=== PATIENT | female | born 1945 | race Caucasian/White ===

== ENCOUNTER → 2019-06-05 | Outpatient (CLI) | payer MEDICARE, BC ==
--- NOTE | 2019-06-05 11:27 | RADIOLOGY REPORT (SQ) ---
EXAM DESCRIPTION: CHEST PA/LATERAL COMPLETED DATE/TIME: 06/05/2019 11:15 am REASON FOR STUDY: PRE-OP COMPARISON: None. EXAM PARAMETERS: NUMBER OF VIEWS: two views TECHNIQUE: Digital Frontal and Lateral radiographic views of the chest acquired. RADIATION DOSE: NA LIMITATIONS: none FINDINGS: LUNGS AND PLEURA: No opacities, masses or pneumothorax. No pleural effusion. MEDIASTINUM AND HILAR STRUCTURES: No masses or contour abnormalities. HEART AND VASCULAR STRUCTURES: Heart normal size. No evidence for failure. BONES: No acute findings. HARDWARE: None in the chest. OTHER: No other significant finding. IMPRESSION: NO SIGNIFICANT RADIOGRAPHIC FINDING IN THE CHEST. TECHNICAL DOCUMENTATION: JOB ID: [id number] [employer]- All Rights Reserved Reading location - IP/workstation name: [email or web address]
[2019-06-05 12:14] LABS: APPEARANCE,URINE CLEAR; BILIRUBIN,URINE NEGATIVE (NEGATIVE); COLOR,URINE YELLOW; GLUCOSE, URINE NEGATIVE (NEGATIVE); KETONES,URINE NEGATIVE (NEGATIVE); LEUKOCYTE ESTERASE,URINE SMALL (NEGATIVE); NITRITE,URINE NEGATIVE (NEGATIVE); PROTEIN,URINE NEGATIVE (NEGATIVE); URINE SPECIFIC GRAVITY 1.013; UROBILINOGEN,URINE NEGATIVE mg/dL (<2.0)
[2019-06-05 12:15] LABS: ABSOLUTE EOSINOPHILS # (AUTO) 0.2 10^3/uL (0.0-0.6); ABSOLUTE LYMPHOCYTES (AUTO) 1.7 10^3/uL (0.5-4.7); ABSOLUTE MONOCYTES (AUTO) 0.5 10^3/uL (0.1-1.4); ABSOLUTE NEUT (AUTO) 4.8 10^3/uL (1.7-8.2); BASOPHILS % (AUTO) 0.1 % (0-2); HEMOGLOBIN 13.5 g/dL (12.0-15.5); LYMPHOCYTES % (AUTO) 23.6 % (13-45); MEAN CORPUSCULAR HEMOGLOBIN 30.4 pg (27.0-33.4); MEAN CORPUSCULAR HGB CONC 33.8 g/dL (32.0-36.0); MEAN CORPUSCULAR VOLUME 90 fl (80-97); MONOCYTES % (AUTO) 6.9 % (3-13); PLATELET COUNT 357 10^3/uL (150-450); RED BLOOD COUNT 4.44 10^6/uL (3.72-5.28); RED CELL DISTRIBUTION WIDTH 14.4 % (11.5-14.0); SEGMENTED NEUTROPHILS % (AUTO) 66.4 % (42-78); TOTAL CELLS COUNTED % (AUTO) 100 %; WHITE BLOOD COUNT 7.2 10^3/uL (4.0-10.5)
[2019-06-05 12:46] LABS: ALBUMIN 4.3 g/dL (3.5-5.0); ANION GAP 10 (5-19); BLOOD UREA NITROGEN 9 mg/dL (7-20); CALCIUM 9.9 mg/dL (8.4-10.2); CARBON DIOXIDE 30 mmol/L (22-30); CHLORIDE 101 mmol/L (98-107); GLUCOSE 89 mg/dL (75-110); POTASSIUM 5.4 mmol/L (3.6-5.0)
[2019-06-05 12:52] LABS: PREALBUMIN 29.8 mg/dL (17.6-36.0)
[2019-06-05 12:56] LABS: C-REACTIVE PROTEIN < 5.0 mg/L (<10.0)
[2019-06-05 13:15] LABS: ERYTHROCYTE SEDIMENTATION RATE 30 mm/hr (0-30)
--- NOTE | 2019-06-05 20:46 | EKG REPORT ---
SEVERITY:- NORMAL ECG - SINUS RHYTHM : Confirmed by: Soledad Burr 05-Jun-2019 20:45:20
== END ==
LOC: OD 10:50
PROVIDERS: ATTEND Orthopaedic Surgery
DX: Z01.818 Encounter for other preprocedural examination (principal); R94.31 Abnormal electrocardiogram [ECG] [EKG]; I10 Essential (primary) hypertension; E11.9 Type 2 diabetes mellitus without complications
CPT/HCPCS: 36415; 71046; 80048; 81001; 82040; 82306; 83036; 84134; 85025; 85652; 86140; 93005; 93010

== ENCOUNTER 2019-07-04 05:26 | Day surgery (SDC) | payer MEDICARE, BC ==
[~2019-07-04 05:26] MED LIST: ACETAMINOPHEN 325 MG TABLET ONE; ACETAMINOPHEN 325 MG TABLET PO PRN; CEFAZOLIN SODIUM 2 GM in DEXTROSE 5%-WATER 100 ML IV PRN; LACTATED RINGERS 1000 ML IV PRN; LIDOCAINE 0.5% INJ-PF (5 MG/ML) 50 ML SDV SUBCUT PRN; OXYCODONE HCL SR 10 MG TABLET PO ONE; OXYCODONE HCL SR 10 MG TABLET PO PRN
[2019-07-04] MEDS ORDERED: PROPOFOL INJ 200 MG/20 ML VIAL IV ONE ×2 (06:32→09:53)
[2019-07-04] MEDS ORDERED: TRANEXAMIC ACID INJ/PF 1,000 MG/10 ML SDV ONE (06:32)
[2019-07-04] MEDS ORDERED: ONDANSETRON HCL INJ/PF 4 MG/2 ML SDV ONE (06:32)
[2019-07-04] MEDS ORDERED: MIDAZOLAM 2 MG/2 ML INJ ONE (06:32)
[2019-07-04] MEDS ORDERED: EPINEPHRINE INJ/PF 1 MG/1 ML AMPULE ONE (06:32)
[2019-07-04] MEDS ORDERED: BUPIVACAINE HCL 0.5 % INJ/PF 30 ML SDV ONE (07:07)
[2019-07-04 07:27] LABS: POTASSIUM 4.7 mmol/L (3.6-5.0)
[2019-07-04] MEDS ORDERED: PROMETHAZINE HCL INJ 25 MG/1 ML VIAL IV PRN (07:58)
[2019-07-04] MEDS ORDERED: DIPHENHYDRAMINE HCL 50 MG/ML VIAL IV PRN (07:58)
[2019-07-04] MEDS ORDERED: MORPHINE SULFATE 10 MG/ML INJ IV PRN ×4 (07:58→14:05)
[2019-07-04] MEDS ORDERED: MEPERIDINE HCL/PF INJ 25 MG/1 ML DISP.SYRIN IV PRN (07:58)
[2019-07-04] MEDS ORDERED: FENTANYL CITRATE INJ/PF 100 MCG/2 ML AMPUL IV PRN ×3 (07:58)
[2019-07-04] MEDS: BUPIVACAINE HCL 0.25 % INJ/PF (2.5 MG/1 ML) 30 ML VIAL ONE ×2 (08:39→09:05)
[2019-07-04] MEDS: LIDOCAINE 1% INJ-PF (10 MG/ML) 30 ML SDV ONE ×2 (08:40→09:05)
[2019-07-04] MEDS: KETOROLAC TROMETHAMINE INJ/PF 30 MG/1 ML SDV ONE ×2 (08:40→09:05)
[2019-07-04] MEDS: VANCOMYCIN HCL INJ 1000 MG VIAL ONE ×2 (08:41→09:10)
[2019-07-04] MEDS ORDERED: HYDROMORPHONE HCL INJ/PF 2 MG/ML AMPULE ONE (09:20)
[2019-07-04] MEDS ORDERED: LIDOCAINE 2% INJ (20 MG/ML) 20 ML MDV ONE (10:02)
[2019-07-04] MEDS ORDERED: ROPIVACAINE HCL 0.5% INJ/PF (5 MG/1 ML) 30 ML SDV ONE (10:02)
--- NOTE | 2019-07-04 10:02 | Operative Report ---
Operative Report DATE OF SURGERY: 07/04/19 PREOPERATIVE DIAGNOSIS: Severe right knee primary osteoarthritis POSTOPERATIVE DIAGNOSIS: Severe right knee primary osteoarthritis OPERATION: Right total knee arthroplasty SURGEON: AGUSTÍN DENNY JR ANESTHESIA: Spinal COMPLICATIONS: None ESTIMATED BLOOD LOSS: 20 cc PROCEDURE: Components: Lena persona total knee: 7 PS femur, G x 10 tibia, and a 32 patella OPERATIVE PROCEDURE: Patient was brought to the operating room and spinal anesthesia was administered. After proper anesthesia was obtained, patient was positioned, padded, prepped, and draped in the usual sterile fashion on the operating room table. 2 grams of Ancef and 1 g of vancomycin were given. Appropriate time out was performed. Anterior incision and medial-parapatella approach was performed. Severe degenerative arthritis was noted. Osteophytes were removed from the femur and tibia, and the remainder of the ACL and PCL were removed. The proximal tibia was then prepared and cut perpendicular to the tibial shaft axis and measured to a G tibia. The distal femur was drilled, the canal was irrigated and the distal femoral guide was placed. The distal femur was cut 12 mm mm to 5 degrees of varus. An extension 10 block was placed in the gap was found to be tight. We then returned to the tibia and cut 2 more millimeters. Also current placement of the block found it to be a good fit. The tensor was placed in extension and the extension gap was balanced with releases until the goniometer on the tensor measured to 0. The tensor was placed in flexion and the femur was sized to 7. Drill holes were placed to the appropriate femoral rotation. The 4 and 1 block was placed and the flexion gap was then re-checked with the tensor adapter and found to be appropriate. Anterior-posterior and chamfer cuts were made. Posterior osteophytes were removed. The femoral trial was then placed, and the notch was cut. The combination of the tibial baseplate and the 10 mm polyethylene liner were then placed and the knee was taken through a range of motion with the trials in. This had good balance in extension and flexion as well as patellar tracking. The patella AP aspect was measured to 22 mm and the patella was cut parallel to the anterior patella surface. A 82 mm button was placed medially and superiorly as possible and the patella-button construct again measured 25 mm. This was again taken through a range of motion and found to have good balance, stability and ease of full motion. The rotation of the tibial baseplate was marked, the tibial was anteriorly subluxed and the tibial component was pinned and drilled and punched. All the trials were then removed and the wound was copiously irrigated with sterile saline followed by a Betadine soak. After pulsatile irrigation of the rad and soft tissue surfaces, the rad surfaces were cleaned and dried, and cementation of the femur, tibia, and patella was performed. All excess cement was thoroughly removed. The knee was placed in slight flexion until cement was hard. Periarticular injection with Lidocaine, Marcaine and Toradol was performed. A gram of Vancomycin was placed intra-articularly. The extensor mechanism was closed with 0 vicryl tacking sutures and number 2 Stratofix. The subcutaneous tissue was closed with 2-0 monocryl and the skin closed with 3-0 running monocryl. A silver dressing was applied. All needle sponge and instrument counts were correct. Patient was awakened from sedation anesthesia and taken to recovery room in good condition. Agustín Denny DO
[2019-07-04] MEDS ORDERED: OXYCODONE HCL IR 5 MG TABLET PO PRN ×4 (11:04→14:04)
[2019-07-04] MEDS ORDERED: TRAMADOL HCL 50 MG TABLET PO PRN ×2 (11:06→14:06)
[2019-07-04] MEDS ORDERED: PANTOPRAZOLE SODIUM 20 MG TABLET.DR PO PRN ×2 (11:08→14:08)
[2019-07-04] MEDS ORDERED: DIPHENHYDRAMINE HCL 25 MG CAPSULE PO PRN ×2 (11:09→14:08)
[2019-07-04] MEDS ORDERED: ZOLPIDEM TARTRATE 5 MG TABLET PO PRN ×3 (11:09→14:08)
[2019-07-04] MEDS ORDERED: DOCUSATE SODIUM 100 MG CAPSULE PO PRN ×2 (11:14→14:09)
[2019-07-04] MEDS ORDERED: NORMAL SALINE 1000 ML 1,000 ML IV PRN ×2 (11:16→14:09)
[2019-07-04] MEDS ORDERED: DEXAMETHASONE SOD PHOS INJ 10 MG/1 ML VIAL ONE (11:16)
[2019-07-04] MEDS ORDERED: ONDANSETRON 4 MG TAB.RAPDIS PO PRN ×2 (11:17→14:10)
--- NOTE | 2019-07-04 12:42 | RADIOLOGY REPORT (SQ) ---
EXAM DESCRIPTION: KNEE RIGHT 2 VIEWS COMPLETED DATE/TIME: 07/04/2019 10:37 am REASON FOR STUDY: s/p R TKA M17.11 UNILATERAL PRIMARY OSTEOARTHRITIS, RIGHT KNEE Z79.899 OTHER LO NG TERM (CURRENT) DRUG THERAPY COMPARISON: None. NUMBER OF VIEWS: Two views. TECHNIQUE: AP and lateral radiographic images acquired of the right knee. LIMITATIONS: None. FINDINGS: Postoperative images show a right total knee arthroplasty in good position. IMPRESSION: Right knee arthroplasty. Refer to operative note for further information. TECHNICAL DOCUMENTATION: JOB ID: [id number] 2010 [employer]- All Rights Reserved Reading location - IP/workstation name: [email or web address]
[2019-07-04] MEDS: CEFAZOLIN SODIUM 2 GM in DEXTROSE 5%-WATER 100 ML IV SCH ×2 (15:58→23:04)
[2019-07-04] MEDS ORDERED: BUPROPION HCL 75 MG TABLET PO SCH (17:00)
[2019-07-04] MEDS: METFORMIN HCL 500 MG TABLET PO SCH (17:47)
[2019-07-04] MEDS: ACETAMINOPHEN 325 MG TABLET PO SCH (17:47)
[2019-07-04] MEDS ORDERED: GABAPENTIN 100 MG CAPSULE PO SCH ×2 (18:00→22:00)
[2019-07-04] MEDS ORDERED: ACETAMINOPHEN 325 MG TABLET PO SCH (18:00)
[2019-07-04] MEDS ORDERED: DOCUSATE SODIUM 100 MG CAPSULE PO SCH (18:00)
[2019-07-04] MEDS: KETOROLAC TROMETHAMINE INJ/PF 30 MG/1 ML SDV IV SCH (18:11)
[2019-07-04] MEDS: PAROXETINE HCL 20 MG TABLET PO SCH (21:48)
[2019-07-04] MEDS ORDERED: CELECOXIB 200 MG CAPSULE PO SCH (22:00)
[2019-07-04] MEDS ORDERED: PREGABALIN 50 MG CAPSULE PO SCH (22:00)
[2019-07-04] MEDS ORDERED: (PENDING PHARMACY ID) (Nortriptyline Hcl [Pamelor] 75 MG) PO SCH (22:00)
[2019-07-04] MEDS ORDERED: CEFAZOLIN SODIUM 2 GM in DEXTROSE 5%-WATER 100 ML IV SCH (22:00)
[2019-07-04] MEDS ORDERED: ATORVASTATIN CALCIUM 10 MG TABLET PO SCH (22:00)
[2019-07-04] MEDS ORDERED: PREGABALIN 75 MG CAPSULE PO SCH ×2 (22:00)
[2019-07-04] MEDS ORDERED: NORTRIPTYLINE HCL 25 MG CAPSULE PO SCH (22:00)
[2019-07-04] MEDS ORDERED: KETOROLAC TROMETHAMINE INJ/PF 30 MG/1 ML SDV IV SCH (22:00)
[2019-07-04] MEDS ORDERED: (PENDING PHARMACY ID) (Pitavastatin Calcium [Livalo] 2 MG) PO SCH (22:00)
[2019-07-05] MEDS: ACETAMINOPHEN 325 MG TABLET PO SCH ×2 (01:14→10:51)
[2019-07-05] MEDS: KETOROLAC TROMETHAMINE INJ/PF 30 MG/1 ML SDV IV SCH ×2 (01:14→10:53)
[2019-07-05] MEDS ORDERED: PREGABALIN 50 MG CAPSULE PO SCH ×2 (08:00→17:00)
[2019-07-05] MEDS ORDERED: CALCIUM CARBONATE 600 MG/VITAMIN D3 400 UNIT TABLET PO SCH (08:00)
[2019-07-05] MEDS ORDERED: POLYETHYLENE GLYCOL 3350 POWDER 17 GM/1 PACKET PO SCH ×2 (10:00)
[2019-07-05] MEDS ORDERED: CYANOCOBALAMIN (VITAMIN B-12) 1,000 MCG TABLET PO SCH (10:00)
[2019-07-05] MEDS ORDERED: VICTOZA 0.6 MG/0.1 ML SUBCUT SCH (10:00)
[2019-07-05] MEDS ORDERED: CHOLECALCIFEROL (D3) 1,000 UNIT (25 MCG) TABLET PO SCH (10:00)
[2019-07-05] MEDS ORDERED: CELECOXIB 200 MG CAPSULE PO SCH ×2 (10:00)
[2019-07-05] MEDS ORDERED: (PENDING PHARMACY ID) (Liraglutide [Victoza 2-Pak] 1.8 MG) SUBCUT SCH (10:00)
[2019-07-05] MEDS ORDERED: ASPIRIN 325 MG TABLET PO SCH ×2 (10:00)
[2019-07-05] MEDS: PAROXETINE HCL 20 MG TABLET PO SCH (10:51)
[2019-07-05] MEDS: METFORMIN HCL 500 MG TABLET PO SCH (10:51)
[2019-07-05 11:05] VITALS: BP 136/74
--- NOTE | 2019-07-05 15:17 | PDOC PROGRESS REPORT ---
Subjective Progress Note for:: 07/05/19 Subjective:: The patient is doing well this AM. Pain is present but not out of proportion and well controlled on their current medications. There are no new symptoms or overnight events. Overall they are felling well without complaints. They deny chest pain, shortness of breath or motor or sensory loss. Reason For Visit: M17.11 UNILATERAL PRIMARY OSTEOARTHRITIS Physical Exam Vital Signs: Temp Pulse Resp BP Pulse Ox 97.8 F 93 15 136/74 H 94 07/05/19 10:58 07/05/19 10:58 07/05/19 10:58 07/05/19 10:58 07/05/19 10:58 Intake & Output 07/04/19 07/05/19 07/06/19 06:59 06:59 06:59 Intake Total 0 3626 Output Total 2600 Balance 0 1026 Weight 108.86 kg 110.4 kg Physical Exam: Right lower extremity -Pulses 2+ distally -Compartments soft -Wound clean dry and intact [] drainage, appropriate appearance for postop day [] -Sensation grossly intact to L3-4-5 S1 -Motor grossly intact to EHL TA gastroc and quad - Able to perform quad extension and elevate heel off of bed. Results Laboratory Results: 07/04/19 06:52 Impressions: Knee X-Ray 07/04/19 10:19 IMPRESSION: Right knee arthroplasty. Refer to operative note for further information. Assessment & Plan - Diagnosis (1) Status post total right knee replacement Is this a current diagnosis for this admission?: Yes Plan: Postoperative day #1 - 2 doses of Ancef postoperatively q 8 hours to complete 24 hours perio peratively -Weightbearing as tolerated, no precautions, encourage out of bed PAT for ADL training - PT/OT - Keep knee extended in bed, rolled towel under the ankle to obtain full extension -aspirin 325 daily for DVT prophylaxis for 6 weeks -multimodal pain management to avoid excessive narcotics, including gabapentin, tramadol, Toradol, acetaminophen. -Dressing should not be removed for 7 to 10 days until seen in the office -May shower with the dressing intact, if it starts to come off she should not get the incision wet. -I would like to follow the patient my office within the next 7 to [address] at [address] [place] [address]. in [place] office #: [phone] - Time Time Spent with patient: Less than 15 minutes
--- NOTE | 2019-07-05 15:18 | PDOC DISCHARGE SUMMARY ---
Impression - Admit/DC Date/PCP Admission Date/Primary Care Provider: CHENG STEVENS MD Discharge Date: 07/05/19 - Discharge Diagnosis (1) Status post total right knee replacement Is this a current diagnosis for this admission?: Yes - Assessment Summary: Mr. Aggarwal is a very pleasant 73-year-old male who presented to my clinic with chronic right knee pain that is been going on for over a year. After thorough work-up and attempts at conservative treatment including activity modification and [id number]-kdwcket pain medication, they were having severe difficulty with ambulation and was over the counter pain medication for daily activity. They found the pain debilitating and decreasing thier quality of life as they were unable to perform activities of daily living such as ambulating short distances and getting in and out of the car. After a thorough work-up including x-rays that demonstrated joint space narrowing, pceq-vs-[id number] contact, subchondral sclerosis, and osteophyte formation as well as discussing risks and benefits and other treatment options, the patient elected to proceed with a right total knee arthroplasty. They were brought to the operating room on 07/04/2019 and underwent a right total knee arthroplasty and tolerated procedure very well with out complication. They were then admitted to the hospital floor for postoperative medical management, monitoring, and pain control. On postoperative day #1 they were ambulating well with physical therapy, to the degree that they approved them for discharge home. They were discharged home on 07/05/2019, postoperative day #1. They had no acute events or complications over the course of their stay. All detailed instructions and prescriptions were provided to the patient prior to admission on the year prior office visit. - Additional Information Resuscitation Status: Full Code Discharge Diet: As Tolerated, Diabetic Discharge Activity: Activity As Tolerated, No Driving, Keep Legs Elevated, No Lifting Over 10 Pounds, Slowly Increase Activity, No tub bath, Walk Frequently Referrals: ESTEFANY EDNNY JR, [ACTIVE PROVISIONAL STAFF] - 07/14/19 1:25 pm Home Medications: Alendronate Sodium 70 mg PO FR 07/04/19 Bupropion HCl [Wellbutrin 75 mg Tablet] 75 mg PO WSUPPER 07/04/19 Calcium Carbonate/Vitamin D3 [Calcium 600-Vit D3 400 Tablet] 1 tab PO QAM 07/04/19 Celecoxib [Celebrex 200 mg Capsule] 200 mg PO Q12 07/04/19 Cholecalciferol (Vitamin D3) [Vitamin D3 1000 Unit Tablet] 1,000 unit PO DAILY 07/04/19 Cyanocobalamin (Vitamin B-12) [Vitamin B-12 1000 mcg Tablet] 1,000 mcg PO DAILY 07/04/19 Docusate Sodium [Colace 100 mg Capsule] 100 mg PO BID 07/04/19 Liraglutide [Victoza 2-Janes] 1.8 mg SQ DAILY 07/04/19 Metformin HCl [Glucophage 500 mg Tablet] 1,000 mg PO BID 07/04/19 Nortriptyline HCl [Pamelor] 75 mg PO QHS 07/04/19 Paroxetine HCl [Paxil 20 mg Tablet] 40 mg PO Q12 07/04/19 Pitavastatin Calcium [Livalo] 2 mg PO QHS 07/04/19 Pregabalin [Lyrica 50 mg Capsule] 50 mg PO QAM 07/04/19 Zolpidem Tartrate [Ambien 5 mg Tablet] 5 mg PO HSP PRN 07/04/19 Acetaminophen [Tylenol 325 mg Tablet] 975 mg PO Q8A tablet 07/05/19 Aspirin [Aspirin 325 mg Tablet] 325 mg PO DAILY tablet 07/05/19 Docusate Sodium [Colace 100 mg Capsule] 100 mg PO TIDP PRN capsule 07/05/19 Ketorolac Tromethamine [Toradol Inj/Pf 30 mg/1 ml Sdv] 15 mg IV Q8A vial 07/05/19 Ondansetron [Zofran Odt 4 mg Tablet] 4 mg PO Q6HP PRN tab.rapdis 07/05/19 Polyethylene Glycol 3350 [Miralax Powder 17 gm/Packet] 17 gm PO DAILY powd.pack 07/05/19 History of Present Illiness History of Present Illness: NARESH AGGARWAL is a 73 year old female Physical Exam Vital Signs: Temp Pulse Resp BP Pulse Ox 97.8 F 93 15 136/74 H 94 07/05/19 10:58 07/05/19 10:58 07/05/19 10:58 07/05/19 10:58 07/05/19 10:58 Intake & Output 07/04/19 07/05/19 07/06/19 06:59 06:59 06:59 Intake Total 0 3626 Output Total 2600 Balance 0 1026 Weight 108.86 kg 110.4 kg Results Laboratory Results: Potassium 4.7 mmol/L (3.6-5.0) 07/04/19 06:52 Glucose 105 mg/dL (75-110) 07/04/19 06:52 POC Glucose 147 mg/dL (70-110) H 07/05/19 06:38 Impressions: Knee X-Ray 07/04/19 10:19 IMPRESSION: Right knee arthroplasty. Refer to operative note for further information. Stroke Is this a Stroke Patient?: No Acute Heart Failure - Is this a Heart Failure Patient?: No
== END 2019-07-05 11:50 | disposition home health service (06) ==
LOC: OROUT 05:26 → EDSTATUS 07:30 → 4S 11:49 → OROUT 07-05 11:50
PROVIDERS: ATTEND Orthopaedic Surgery
DX: M17.11 Unilateral primary osteoarthritis, right knee (principal); E11.9 Type 2 diabetes mellitus without complications; E66.9 Obesity, unspecified; Z79.84 Long term (current) use of oral hypoglycemic drugs; Z79.899 Other long term (current) drug therapy; Z79.82 Long term (current) use of aspirin
CPT/HCPCS: 36415; 82962; 82947; 84132; 73560; 97530 ×4; 97110 ×2; 97116; 97163; 97535 ×2; 97167; 01402; 27447; A9270 ×18; J2795; J2250; J3490 ×4; J0690; J0171; J1885 ×2; J2270; J1170; J2405; J7060; J7030; J7120; J2704; J3370; J1100

== ENCOUNTER 2019-12-14 07:42 | Day surgery (SDC) | payer MEDICARE, BC ==
[~2019-12-14 07:42] MED LIST changes: -ACETAMINOPHEN 325 MG TABLET ONE; +CEFAZOLIN 2 GM/D5W RTU 2 GM/50 ML RTUPB IV PRN; -CEFAZOLIN SODIUM 2 GM in DEXTROSE 5%-WATER 100 ML IV PRN; +CELECOXIB 200 MG CAPSULE PO PRN; +GABAPENTIN 100 MG CAPSULE PO PRN; -LACTATED RINGERS 1000 ML IV PRN; -LIDOCAINE 0.5% INJ-PF (5 MG/ML) 50 ML SDV SUBCUT PRN; +ONDANSETRON HCL INJ/PF 4 MG/2 ML SDV IV PRN; -OXYCODONE HCL SR 10 MG TABLET PO ONE; +SCOPOLAMINE HYDROBROMIDE 1.5 MG PATCH.TD72 TD PRN; +TRAMADOL HCL 50 MG TABLET PO PRN; +TRANEXAMIC ACID INJ/PF 1,000 MG/10 ML SDV IV PRN; +VANCOMYCIN HCL 1,000 MG in DEXTROSE 5%-WATER 250 ML IV PRN
[2019-12-14] MEDS ORDERED: PROPOFOL INJ 200 MG/20 ML VIAL IV ONE ×2 (09:05→13:11)
[2019-12-14] MEDS ORDERED: MIDAZOLAM 2 MG/2 ML INJ ONE (09:05)
[2019-12-14] MEDS ORDERED: FENTANYL CITRATE INJ/PF 100 MCG/2 ML AMPUL ONE (09:05)
[2019-12-14] MEDS ORDERED: EPHEDRINE SULFATE INJ 50 MG/1 ML AMPULE ONE (09:05)
[2019-12-14] MEDS ORDERED: TRAMADOL HCL 50 MG TABLET ONE (09:09)
[2019-12-14] MEDS ORDERED: CEFAZOLIN 2 GM/D5W RTU 2 GM/50 ML RTUPB IV ONE (09:09)
[2019-12-14] MEDS ORDERED: CELECOXIB 200 MG CAPSULE ONE (09:09)
[2019-12-14] MEDS ORDERED: ACETAMINOPHEN 325 MG TABLET ONE (09:09)
[2019-12-14] MEDS ORDERED: OXYCODONE HCL SR 10 MG TABLET PO ONE (09:09)
[2019-12-14] MEDS ORDERED: GABAPENTIN 100 MG CAPSULE ONE (09:10)
[2019-12-14] MEDS ORDERED: SCOPOLAMINE HYDROBROMIDE 1.5 MG PATCH.TD72 ONE (09:10)
[2019-12-14] MEDS ORDERED: TRANEXAMIC ACID INJ/PF 1,000 MG/10 ML SDV ONE (09:27)
[2019-12-14] MEDS ORDERED: LIDOCAINE 1% INJ-PF (10 MG/ML) 30 ML SDV ONE (09:30)
[2019-12-14] MEDS ORDERED: KETOROLAC TROMETHAMINE INJ/PF 30 MG/1 ML SDV ONE (09:30)
[2019-12-14] MEDS ORDERED: VANCOMYCIN HCL INJ 1000 MG VIAL ONE (09:30)
[2019-12-14] MEDS ORDERED: BUPIVACAINE HCL 0.25 % INJ/PF (2.5 MG/1 ML) 30 ML VIAL ONE ×2 (09:30→12:38)
[2019-12-14] MEDS ORDERED: MORPHINE SULFATE 10 MG/ML INJ IV PRN (10:36)
[2019-12-14] MEDS ORDERED: FENTANYL CITRATE INJ/PF 100 MCG/2 ML AMPUL IV PRN ×3 (10:36)
[2019-12-14] MEDS ORDERED: ONDANSETRON HCL INJ/PF 4 MG/2 ML SDV IV PRN (10:36)
[2019-12-14] MEDS ORDERED: MEPERIDINE HCL/PF INJ 25 MG/1 ML DISP.SYRIN IV PRN (10:36)
[2019-12-14] MEDS ORDERED: DIPHENHYDRAMINE HCL 50 MG/ML VIAL IV PRN (10:36)
--- NOTE | 2019-12-14 12:58 | Operative Report ---
Operative Report DATE OF SURGERY: 12/14/19 PREOPERATIVE DIAGNOSIS: Left knee primary osteoarthritis, severe POSTOPERATIVE DIAGNOSIS: Left knee primary osteoarthritis, severe OPERATION: Left total knee arthroplasty SURGEON: AGUSTÍN DENNY JR ANESTHESIA: Spinal COMPLICATIONS: None ESTIMATED BLOOD LOSS: 20 cc PROCEDURE: Components: Lena persona total knee: 8 PS femur, G x 10 tibia, and a 32 patella OPERATIVE PROCEDURE: Patient was brought to the operating room and spinal anesthesia was administered. After proper anesthesia was obtained, patient was positioned, padded, prepped, and draped in the usual sterile fashion on the operating room table. 2 grams of Ancef and 1 g of vancomycin were given. Appropriate time out was performed. Anterior incision and medial-parapatella approach was performed. Severe degenerative arthritis was noted. Osteophytes were removed from the femur and tibia, and the remainder of the ACL and PCL were removed. The proximal tibia was then prepared and cut perpendicular to the tibial shaft axis and measured to a G tibia. To the patient having intramedullary hardware, a extra medullary technique was used with the assistance of [employer] instruments. The tensor was placed into flexion at 90 degrees followed by sizing of the femur to a 65 cutting block which coincided with an 8 PS femur and persona. The 65 cutting block was pinned and the anterior and posterior cuts were made. A lamina summer law clerk was placed in each compartment to allow visualization of the opposite compartment and a curved osteotome was used to release posterior osteophytes, followed by a curved curette, followed by a rongeur to remove any excess debris. After this a 10 mm cut block was placed in flexion and found to be ideal resection. We then brought the knee into extension and placed the tensor. The ASIS was used as a landmark with a plumbline drawn through to the center of the ankle. This passed through the center of the knee without the need for releases. The distal femoral cut block was then pinned the knee was brought into extension, and the distal femoral cut was then made. This was again checke d with a 10 block which was found to be ideal resection depth. I then placed the 4-in-1 cutting block for a persona which required anterior rising 2 mm in order to match the AP cuts that were previously made. The chamfers were then cut followed by impaction of the femoral trial followed by making the notch cuts with a reciprocating saw. The combination of the tibial baseplate and the 10 mm polyethylene liner were then placed and the knee was taken through a range of motion with the trials in. This had excellent balance in extension and flexion as well as patellar tracking. The patella AP aspect was measured to 23 mm and the patella was cut parallel to the anterior patella surface. A 32 mm button was placed medially and superiorly as possible and the patella-button construct again measured 23 mm. This was again taken through a range of motion and found to have excellent balance, stability and ease of full motion. The rotation of the tibial baseplate was marked, the tibial was anteriorly subluxed and the tibial component was pinned and drilled and punched. All the trials were then removed and the wound was copiously irrigated with sterile saline followed by a Betadine soak. After pulsatile irrigation of the rad and soft tissue surfaces, the rad surfaces were cleaned and dried, and cementation of the femur, tibia, and patella was performed. All excess cement was thoroughly removed. The knee was placed in slight flexion until cement was hard with a trial 10 mm polyethylene. Repeat trialing found a 10 mm to have a slight amount of lateral laxity in mid flexion however extension capacity was excellent with good stability. We chose a an 11 mm polyethylene which unfortunately was contaminated. We returned to the 10 mm polyethylene final and inserted it. Periarticular injection with Lidocaine, Marcaine and Toradol was performed. The knee was irrigated copiously. A gram of Vancomycin was placed intra-articularly. The extensor mechanism was closed with 0 vicryl tacking sutures and number 2 Stratofix. The subcutaneous tissue was closed with 2-0 monocryl and the skin closed with 3-0 running monocryl. A silver dressing was applied. All needle sponge and instrument counts were correct. Patient was awakened from sedation anesthesia and taken to recovery room in good condition. Agustín Denny DO
[2019-12-14] MEDS ORDERED: ZOLPIDEM TARTRATE 5 MG TABLET PO PRN (13:45)
--- NOTE | 2019-12-14 13:48 | RADIOLOGY REPORT (SQ) ---
EXAM DESCRIPTION: KNEE LEFT 2 VIEWS IMAGES COMPLETED DATE/TIME: 12/14/2019 1:31 pm REASON FOR STUDY: POST OP IN PACU M17.12 UNILATERAL PRIMARY OSTEOARTHRITIS, LEFT KNEE COMPARISON: None. NUMBER OF VIEWS: Two views. TECHNIQUE: AP and lateral radiographic images acquired of the left knee. LIMITATIONS: None. FINDINGS: MINERALIZATION: Normal. BONES: The patient is status post total knee arthroplasty without evidence hardware complication. Pa rtially imaged femur intramedullary perez. No acute osseous injury. JOINT: No effusion. Intraarticular gas is not an unexpected finding in the postsurgical setting. SOFT TISSUES: Subcutaneous gas is not an unexpected finding in the postsurgical setting. OTHER: No other significant finding. IMPRESSION: Status post total knee arthroplasty without evidence of hardware complication or osseous injury. TECHNICAL DOCUMENTATION: JOB ID: [id number] 2010 [employer]- All Rights Reserved Reading location - IP/workstation name: [email or web address]
[2019-12-14] MEDS ORDERED: OXYCODONE HCL IR 5 MG TABLET PO PRN ×3 (14:29→15:08)
[2019-12-14] MEDS ORDERED: TRAMADOL HCL 50 MG TABLET PO PRN ×2 (14:30→15:08)
[2019-12-14] MEDS ORDERED: PANTOPRAZOLE SODIUM 20 MG TABLET.DR PO PRN (14:32)
[2019-12-14] MEDS ORDERED: DIPHENHYDRAMINE HCL 25 MG CAPSULE PO PRN (14:37)
[2019-12-14] MEDS ORDERED: DOCUSATE SODIUM 100 MG CAPSULE PO PRN (14:38)
[2019-12-14] MEDS ORDERED: NORMAL SALINE 1000 ML 1,000 ML IV PRN (14:39)
[2019-12-14] MEDS ORDERED: ONDANSETRON 4 MG TAB.RAPDIS PO PRN (14:39)
[2019-12-14] MEDS: MORPHINE SULFATE 10 MG/ML INJ IV PRN ×2 (14:47→20:44)
[2019-12-14] MEDS ORDERED: BUPROPION HCL 75 MG TABLET PO SCH (17:00)
[2019-12-14] MEDS: KETOROLAC TROMETHAMINE INJ/PF 30 MG/1 ML SDV IV SCH (17:21)
[2019-12-14] MEDS: CEFAZOLIN 2 GM/D5W RTU 2 GM/50 ML RTUPB IV SCH (17:59)
[2019-12-14] MEDS ORDERED: DOCUSATE SODIUM 100 MG/10 ML UDC PO SCH (18:00)
[2019-12-14] MEDS ORDERED: DOCUSATE CALCIUM 250 MG PO SCH (18:00)
[2019-12-14] MEDS ORDERED: (PENDING PHARMACY ID) (Metformin Hcl [Metformin Hcl Er] 1,000 MG) PO SCH (18:00)
[2019-12-14] MEDS ORDERED: METFORMIN HCL 500 MG TABLET PO SCH ×2 (18:00)
[2019-12-14] MEDS: ACETAMINOPHEN 325 MG TABLET PO SCH (21:22)
[2019-12-14] MEDS ORDERED: (PENDING PHARMACY ID) (Pitavastatin Calcium [Livalo] 2 MG) PO SCH (22:00)
[2019-12-14] MEDS ORDERED: NORTRIPTYLINE HCL 25 MG CAPSULE PO SCH (22:00)
[2019-12-14] MEDS ORDERED: PAROXETINE HCL 20 MG TABLET PO SCH (22:00)
[2019-12-14] MEDS ORDERED: NORTRIPTYLINE HCL 100 MG PO SCH (22:00)
[2019-12-14] MEDS ORDERED: ATORVASTATIN CALCIUM 10 MG TABLET PO SCH (22:00)
[2019-12-14] MEDS ORDERED: CELECOXIB 200 MG CAPSULE PO SCH (22:00)
[2019-12-15] MEDS ORDERED: NORTRIPTYLINE HCL 25 MG CAPSULE ONE ×2 (00:24→02:06)
[2019-12-15] MEDS: CEFAZOLIN 2 GM/D5W RTU 2 GM/50 ML RTUPB IV SCH (02:10)
[2019-12-15] MEDS: KETOROLAC TROMETHAMINE INJ/PF 30 MG/1 ML SDV IV SCH (02:26)
[2019-12-15] MEDS: ACETAMINOPHEN 325 MG TABLET PO SCH (06:15)
--- NOTE | 2019-12-15 06:42 | PDOC PROGRESS REPORT ---
Subjective Progress Note for:: 12/15/19 Subjective:: The patient is doing well this AM. Pain is present but not out of proportion and well controlled on their current medications. There are no new symptoms or overnight events. Overall they are felling well without complaints. They deny chest pain, shortness of breath or motor or sensory loss. Reason For Visit: M17.12 UNILATERAL PRIMARY OSTEOARTHRITIS, LEFT KNE Physical Exam Vital Signs: Temp Pulse Resp BP Pulse Ox 98.3 F 88 18 120/37 L 95 12/15/19 00:06 12/15/19 00:06 12/15/19 00:06 12/15/19 00:06 12/15/19 00:06 Intake & Output 12/13/19 12/14/19 12/15/19 06:59 06:59 06:59 Intake Total 4920 Output Total 3025 Balance 1895 Weight 113.63 kg Physical Exam: No acute distress, alert and oriented x3 Left lower extremity -Pulses 2+ distally -Compartments soft -Sensation grossly intact to L3-4-5 S1 -Motor grossly intact to EHL TA gastroc and quad Results Impressions: Knee X-Ray 12/14/19 00:00 IMPRESSION: Status post total knee arthroplasty without evidence of hardware complication or osseous injury. Assessment & Plan - Diagnosis (1) History of total left knee replacement Is this a current diagnosis for this admission?: Yes Plan: - 2 doses of Ancef postoperatively q 8 hours to complete 24 hours perioperatively -Weightbearing as tolerated, no precautions, encourage out of bed PAT for ADL training - PT/OT - Keep knee extended in bed, rolled towel under the ankle to obtain full extension -aspirin 325 daily for DVT prophylaxis for 6 weeks -multimodal pain management to avoid excessive narcotics, including gabapentin, tramadol, Toradol, acetaminophen. -Dressing should not be removed for 7 to 10 days until seen in the office -May shower with the dressing intact, if it starts to come off she should not get the incision wet. -I would like to follow the patient my office within the next 7 to [address] [place] [address]. in [place] office #: [phone] - Time Time Spent with patient: Less than 15 minutes
--- NOTE | 2019-12-15 06:49 | Discharge Summary ---
Discharge Summary (SDC) - Discharge Final Diagnosis: Left total knee arthroplasty Date of Surgery: 12/14/19 Discharge Date: 12/15/19 Condition: Stable Treatment or Instructions: Full details of postoperative instructions have been provided to the patient in the clinic. Additionally they should maintain their bandage in place for 5 to 7 days, and then changed to a dry dressing. They can take showers with this occlusive dressing but any further dressing should also be occlusive. No showers with the wound unprotected until cleared by me in the clinic. If the bandage falls off early or become saturated they can change as needed to another occlusive dressing. Referrals: ESTEFANY DENNY JR, DO [ACTIVE PROVISIONAL STAFF] - 12/25/19 12:45 pm Respiratory Treatments at Home: Deep Breathing/Coughing Discharge Activity: Activity As Tolerated, Balance Activity w/Rest, No Driving, Keep Legs Elevated, No Lifting/Push/Pulling, Slowly Increase Activity, No tub bath, Walk Frequently Activities Provided by Home Health Agency: Physical Therapy Adaptive Devices on Discharge: Rolling Walker, Bedside Commode Report the Following to Your Physician Immediately: Shortness of Breath, Fever over 101 Degrees, Unusual Bleeding, Drainage-Yellow
[2019-12-15] MEDS ORDERED: CALCIUM CARBONATE 600 MG/VITAMIN D3 400 UNIT TABLET PO SCH (08:00)
[2019-12-15] MEDS ORDERED: PREGABALIN 50 MG CAPSULE PO SCH (08:00)
[2019-12-15 08:21] VITALS: BP 136/54
[2019-12-15] MEDS ORDERED: [UNRECOGNIZED DRUG - OTHER] PO SCH (10:00)
[2019-12-15] MEDS ORDERED: MULTIVITAMIN TABLET PO SCH (10:00)
[2019-12-15] MEDS ORDERED: FOLIC ACID PO SCH (10:00)
[2019-12-15] MEDS ORDERED: MULTIVIT MIN PO SCH (10:00)
[2019-12-15] MEDS ORDERED: (PENDING PHARMACY ID) (Alendronate Sodium [Alendronate Sodium] 70 MG) PO SCH (10:00)
[2019-12-15] MEDS ORDERED: BIOTIN PO SCH (10:00)
[2019-12-15] MEDS ORDERED: CHOLECALCIFEROL (D3) 1,000 UNIT (25 MCG) TABLET PO SCH (10:00)
[2019-12-15] MEDS ORDERED: ASPIRIN 325 MG TABLET, ENT COATED PO SCH (10:00)
[2019-12-15] MEDS ORDERED: POLYETHYLENE GLYCOL 3350 POWDER 17 GM/1 PACKET PO SCH (10:00)
[2019-12-15] MEDS ORDERED: (PENDING PHARMACY ID) (Liraglutide [Victoza 2-Pak] 1.8 MG) SUBCUT SCH (10:00)
[2019-12-15] MEDS ORDERED: (PENDING PHARMACY ID) (Liraglutide [Victoza 2-Pak] 1.8 MG) INJ SCH (10:00)
[2019-12-15] MEDS ORDERED: CYANOCOBALAMIN (VITAMIN B-12) 1,000 MCG TABLET PO SCH (10:00)
== END 2019-12-15 09:45 | disposition home health service (06) ==
LOC: OROUT 07:42 → 4W 13:48 → 4S 17:38 → OROUT 12-15 09:45
PROVIDERS: ATTEND Orthopaedic Surgery
DX: M17.12 Unilateral primary osteoarthritis, left knee (principal); Z03.818 Encounter for observation for suspected exposure to other biological agents ruled out; E11.9 Type 2 diabetes mellitus without complications; E66.9 Obesity, unspecified; M79.7 Fibromyalgia; Z79.899 Other long term (current) drug therapy; Z79.82 Long term (current) use of aspirin; Z79.84 Long term (current) use of oral hypoglycemic drugs; Z79.891 Long term (current) use of opiate analgesic; Z88.8 Allergy status to other drugs, medicaments and biological substances
CPT/HCPCS: 82962; 73560; 97530 ×4; 97110; 97116 ×2; 97163; 97535 ×2; 97167; 01402; 27447; U0003; A9270 ×15; J2250; J3010; J3490 ×2; J1885 ×2; J2270; J7060; J7030; J2704; J3370; J0690 ×2; C9803; 87635